=== PATIENT | female | born 1950 | race Asian ===

== ENCOUNTER 2021-01-10 09:58 | Outpatient (CLI) | payer MEDICARE, MEDICAID | END 2021-01-10 09:59 | disposition home or self-care (01) | LOC: CSHULT 09:58 | PROVIDERS: ATTEND Physician Assistant Medical | DX: R74.8 Abnormal levels of other serum enzymes (principal) | CPT/HCPCS: 76700 ==

== ENCOUNTER 2021-08-04 14:04 | Emergency (ER) | payer MEDICARE, OTHER ==
[2021-08-04] MEDS ORDERED: Ketorolac Tromethamine 30 MG/ML VIAL ONE (15:01)
== END 2021-08-04 15:23 | disposition home or self-care (01) ==
LOC: CSHERS 14:04
DX: S80.01XA Contusion of right knee, initial encounter (principal); E11.9 Type 2 diabetes mellitus without complications; I10 Essential (primary) hypertension; W01.198A Fall on same level from slipping, tripping and stumbling with subsequent striking against other object, initial encounter
CPT/HCPCS: 96372; J1885